=== PATIENT | female | born 1970 | race Two or more races ===

== ENCOUNTER 2017-04-03 14:37 | Emergency (ER) | payer SELFPAY ==
[2017-04-03 14:45] VITALS: BP 127/85
--- NOTE | 2017-04-03 15:32 | ER Document Report ---
ED Skin Rash/Insect Bite/Abscs - General Chief Complaint: Rash Stated Complaint: POSSIBLE RASH Time Seen by Provider: 04/03/17 14:48 TRAVEL OUTSIDE OF THE [place] IN LAST 30 DAYS: No - HPI Patient complains to provider of: Skin rash/lesion Onset: Yesterday Onset/Duration: Sudden Quality of pain: No pain Severity: None Pain Level: Denies Skin Character: Blanching, Erythema, Urticarial. No: Drainage, Tenderness Skin Temperature: Warm Quality of rash: Itchy Identify cause: No Medication exposure: denies: Antibiotic, Aspirin, YVETTE / ARB inhibitor, NSAID, Other Food exposure: denies: Shellfish, Nuts, Soybeans, Eggs, Other Other exposure: Other - possibly plant exposure Relieved by: Denies - Related Data Allergies/Adverse Reactions: No Known Allergies Allergy (Unverified 04/03/17 14:45) Past Medical History - Social History Smoking Status: Never Smoker Family History: DM, Hypertension Renal/ Medical History: Denies: Hx Peritoneal Dialysis Review of Systems - Review of Systems Constitutional: No symptoms reported EENT: No symptoms reported Cardiovascular: No symptoms reported Respiratory: No symptoms reported Skin: See HPI -: Yes All other systems reviewed and negative Physical Exam - Vital signs Vitals: Temp Pulse Resp BP Pulse Ox 98.4 F 97 20 127/85 H 93 04/03/17 14:45 04/03/17 14:45 04/03/17 14:45 04/03/17 14:45 04/03/17 14:45 - General General appearance: Appears well, Alert - HEENT Head: Normocephalic Eyes: Normal Conjunctiva: Normal Extraocular movements intact: Yes Eyelashes: Normal Pupils: PERRL Ears: Normal External canal: Normal Tympanic membrane: Normal Sinus: Normal Nasal: Normal Mouth/Lips: Normal Pharynx: Normal Neck: Normal - Respiratory Respiratory status: No respiratory distress Chest status: Nontender Breath sounds: Normal Chest palpation: Normal - Cardiovascular Rhythm: Regular Heart sounds: Normal auscultation, S1 appreciated, S2 appreciated Gallop: None auscultated Pulses: Normal: Radial Normal capillary refill: Yes - Extremities General upper extremity: Normal inspection, Nontender, Normal color, Normal ROM , Normal strength, Normal temperature General lower extremity: Normal inspection, Nontender, Normal color, Normal ROM , Normal strength, Normal temperature, Normal weight bearing - Neurological Neuro grossly intact: Yes Cognition: Normal Orientation: AAOx4 [place] Coma Scale Eye Opening: Spontaneous [place] Coma Scale Verbal: Oriented [place] Coma Scale Motor: Obeys Commands [place] Coma Scale Total: 15 - Skin Skin Temperature: Warm Skin Moisture: Dry Location of irregularity: Generalized Character of irregularity: Urticarial Course - Re-evaluation Re-evalutation: 04/03/17 15:30 Patient is a 46-year-old female who is hemodynamic stable, no acute distress afebrile. Presentation consistent with likely contact reaction with associated urticaria or rash. Discharge patient home on antihistamines and steroid. Can follow-up with primary care. - Vital Signs Vital signs: Temp Pulse Resp BP Pulse Ox 98.4 F 97 20 127/85 H 93 04/03/17 14:45 04/03/17 14:45 04/03/17 14:45 04/03/17 14:45 04/03/17 14:45 Discharge - Discharge Clinical Impression: Urticaria Condition: Good Disposition: HOME, SELF-CARE Instructions: Acute Urticaria ([facility]), OTC Antihistamines ([facility]) Prescriptions: Methylprednisolone [Medrol Dosepack (4 mg/Tab) 21 Tab/Dosepak] 4 mg PO ASDIR PRN #21 [email or web address] PRN Reason: Referrals: [facility] [NO LOCAL MD] - Follow up as needed
== END 2017-04-03 15:45 | disposition home or self-care (01) ==
LOC: ER 14:37
DX: L50.9 Urticaria, unspecified (principal); R21 Rash and other nonspecific skin eruption
CPT/HCPCS: 99282